=== PATIENT | female | born 1985 | race Caucasian/White ===

== ENCOUNTER 2017-09-18 15:32 | Outpatient (CLI) | payer OTHER ==
[~2017-09-18 15:32] MED LIST: Gadobenate Dimeglumine 529 MG/1 ML (20ML VIAL) ONE
--- NOTE | 2017-09-18 17:07 | MRI ---
MRI OF THE BRAIN WITH AND WITHOUT CONTRAST 09/18/17 COMPARISON: None. HISTORY: Blurred vision in the left eye, "optic nerve damage." TECHNIQUE: Multiplanar and multisequence MR imaging of the brain is obtained with and without contrast using an orbits protocol. FINDINGS: The diffusion weighted imaging demonstrates no evidence for acute infarction. Regional bone marrow signal intensity appears within normal limits. On coronal fat sat T2 weighted imaging, there is increased signal intensity within the optic nerve in the region of the orbital apex on the left and within the posterior intraconal component of the left optic nerve. The left optic nerve does not appear swollen. The right optic nerve demonstrates normal T2 signal intensity. There is no increased signal intensity involving the intraconal fat. There is mild polypoid mucosal thickening involving the maxillary sinus on the right. Arterial flow v oids at the axial level of the skull base appear unremarkable on the T2 weighted imaging. Whole brain postcontrast imaging demonstrates no abnormal enhancement within the brain parenchyma. No discrete enhancement is seen involving the optic nerve on either side. IMPRESSION: There is increased intensity within the left optic nerve at the level of the orbital apex and involvi ng the posterior portion of the intraconal aspect of the left optic nerve. There is no enhancement of the left optic nerve and the left optic nerve does not appear enlarged. These findings suggest a his tory of left optic neuritis which may be subacute or chronic in nature. No intracranial white matter disease is noted. POS: [facility]
== END 2017-09-18 15:33 | disposition home or self-care (01) ==
LOC: MRI 15:32
PROVIDERS: ATTEND Ophthalmology
DX: H46.9 Unspecified optic neuritis (principal)
CPT/HCPCS: 70553